=== PATIENT | male | born 1995 | race African-American/Black ===

== ENCOUNTER 2021-06-27 16:47 | Emergency (ER) | payer MEDICAID, OTHER ==
[~2021-06-27] VITALS: Ht 170.2 cm; Wt 57.0 kg
[2021-06-27] MEDS ORDERED: EMTR200C3 PO (17:17)
[2021-06-27] MEDS ORDERED: ZIDO300T12 MT (17:17)
[2021-06-27] MEDS ORDERED: ONDA4TAB5 PO (17:17)
[2021-06-27 17:26] VITALS: BP 126/86
== END 2021-06-27 17:27 | disposition home or self-care (01) ==
LOC: ER 16:47
DX: Z20.2 Contact with and (suspected) exposure to infections with a predominantly sexual mode of transmission (principal); F12.90 Cannabis use, unspecified, uncomplicated
CPT/HCPCS: 99282; 99283